=== PATIENT | male | born 2000 | race Caucasian/White ===

== ENCOUNTER → 2023-11-25 12:54 | Outpatient (REF) | payer BC, SELFPAY | LOC: RAD 12:54 | PROVIDERS: ATTENDING PHYSICIAN Family Medicine | DX: S60.00XA Contusion of unspecified finger without damage to nail, initial encounter (principal) | CPT/HCPCS: 73140 ==

== ENCOUNTER → 2024-12-28 07:17 | Outpatient (REF) | payer BC, SELFPAY | LOC: RAD 07:17 | PROVIDERS: ATTENDING PHYSICIAN Orthopaedic Surgery; FAMILY PHYSICIAN Family Medicine | DX: M25.831 Other specified joint disorders, right wrist (principal); M25.9 Joint disorder, unspecified | CPT/HCPCS: 76882 ==